=== PATIENT | male | born 1990 | race Asian ===

== ENCOUNTER 2021-11-12 21:47 | Emergency (ER) | payer OTHER ==
[~2021-11-12] VITALS: Ht 170.2 cm; Wt 79.4 kg
[2021-11-13] MEDS ORDERED: LIDOCAINE HCL 1% 20 ML VIAL ONE (00:02)
[2021-11-13] MEDS ORDERED: TDAP DIPH,PERTUSS,TET VAC/PF 0.5 ML DISP.SYRIN IM ONE ×2 (00:15→00:19)
[2021-11-13] MEDS ORDERED: LIDOCAINE HCL 1% 20 ML VIAL IJ ONE (00:15)
[2021-11-13 01:08] VITALS: BP 140/93
== END 2021-11-13 01:06 | disposition home or self-care (01) ==
LOC: ER 21:51
DX: S61.211A Laceration without foreign body of left index finger without damage to nail, initial encounter (principal); W45.8XXA Other foreign body or object entering through skin, initial encounter; Y92.89 Other specified places as the place of occurrence of the external cause
CPT/HCPCS: 12001; 99283; 90715; 90471; J3490; A4663